=== PATIENT | female | born 1990 | race Caucasian/White ===

== ENCOUNTER 2020-07-01 17:10 | Emergency (ER) | payer MEDICAID ==
[~2020-07-01] VITALS: Ht 180.3 cm; Wt 60.2 kg
[2020-07-01 17:15] VITALS: BP 132/82
[2020-07-01] MEDS ORDERED: DEXAMETHASONE 4 MG/ML, 5ML ONE (18:35)
[2020-07-01] MEDS ORDERED: DEXAMETHASONE 4 MG/ML, 1ML PO ONE (19:00)
== END 2020-07-01 17:39 ==
LOC: ED 17:38
DX: J02.0 Streptococcal pharyngitis (principal); F17.210 Nicotine dependence, cigarettes, uncomplicated
CPT/HCPCS: 87880; 99283; 99406; J1100

== ENCOUNTER 2020-08-29 01:23 | Emergency (ER) | payer MEDICAID ==
[~2020-08-29] VITALS: Ht 180.3 cm; Wt 63.0 kg
[2020-08-29 03:28] VITALS: BP 126/74
== END 2020-08-29 03:30 | disposition home or self-care (01) ==
LOC: ED 03:00
DX: L03.116 Cellulitis of left lower limb (principal); R00.0 Tachycardia, unspecified; F17.200 Nicotine dependence, unspecified, uncomplicated
CPT/HCPCS: 99284

== ENCOUNTER 2020-08-30 12:43 | Emergency (ER) | payer MEDICAID ==
[~2020-08-30] VITALS: Ht 180.3 cm; Wt 62.8 kg
[2020-08-30] MEDS ORDERED: KETOROLAC 30 MG/1 ML IVPush ONE (14:00)
--- NOTE | 2020-08-30 14:04 | NUR ---
PT UPRIGHT ON GURNEY AWAKE & CALM, WATCHING TV, RESPONDS APPROP TO STAFF, NAD AT REST, NO NEEDS AT THIS TIME, CALL LIGHT WITHIN REACH.
[2020-08-30] MEDS ORDERED: KETOROLAC 30 MG/1 ML ONE (14:14)
--- NOTE | 2020-08-30 14:15 | NUR ---
PT TO XR
--- NOTE | 2020-08-30 14:28 | NUR ---
PT RETURNED FROM XR
[2020-08-30] MEDS ORDERED: KETOROLAC 30 MG/1 ML IM ONE (14:30)
[2020-08-30 14:33] VITALS: BP 124/79
--- NOTE | 2020-08-30 15:27 | NUR ---
Patient given sling/discharge instructions and Rx, they have confirmed that they understand the instructions. Patient ambulatory with steady gait.
== END 2020-08-30 15:30 | disposition home or self-care (01) ==
LOC: ED 15:25
DX: M75.31 Calcific tendinitis of right shoulder (principal); L03.115 Cellulitis of right lower limb; F17.200 Nicotine dependence, unspecified, uncomplicated
CPT/HCPCS: 73030; 96372; 99283; J1885

== ENCOUNTER 2020-09-05 16:20 | Emergency (ER) | payer MEDICAID ==
[~2020-09-05] VITALS: Ht 180.3 cm; Wt 63.6 kg
[2020-09-05 17:06] LABS: BASOPHILS % (AUTO) 0 % (0-1); EOSINOPHILS % (AUTO) 2 % (1-7); LYMPHOCYTES % (AUTO) 45 % (22-44); MEAN CORPUSCULAR HEMOGLOBIN 32.3 pg (27.0-34.8); MEAN CORPUSCULAR HGB CONC 34.2 g/dL (32.4-35.8); MONOCYTES % (AUTO) 9 % (2-9); NEUTROPHILS % (AUTO) 44 % (42-75); PLATELET COUNT 344 x10^3/uL (130-400); RED BLOOD COUNT 4.11 x10^6/uL (3.82-5.3)
[2020-09-05 17:08] LABS: MD NO
[2020-09-05 18:04] VITALS: BP 121/69
== END 2020-09-05 18:06 | disposition home or self-care (01) ==
LOC: ED 17:49
DX: L03.116 Cellulitis of left lower limb (principal); F17.210 Nicotine dependence, cigarettes, uncomplicated
CPT/HCPCS: 36415; 85025; 99283; 99406

== ENCOUNTER 2020-10-30 20:46 | Emergency (ER) | payer MEDICAID ==
[~2020-10-30] VITALS: Ht 180.3 cm; Wt 55.0 kg
[2020-10-30 20:52] VITALS: BP 120/84
[2020-10-30] MEDS ORDERED: OXYcodone/APAP 5/325MG TABLET ONE (22:26)
[2020-10-30] MEDS ORDERED: SULFAMETH./TRIMETHOPRIM DS 800MG/160MG TABLET ONE (22:26)
[2020-10-30] MEDS ORDERED: CEPHALEXIN 500 MG CAPSULE ONE (22:26)
[2020-10-30] MEDS ORDERED: CEPHALEXIN 500 MG CAPSULE PO ONE (22:30)
[2020-10-30] MEDS ORDERED: OXYcodone/APAP 5/325MG TABLET PO ONE (22:30)
[2020-10-30] MEDS ORDERED: SULFAMETH./TRIMETHOPRIM DS 800MG/160MG TABLET PO ONE (22:30)
--- NOTE | 2020-10-30 22:30 | NUR ---
Patient/Caregiver given discharge instructions and they have confirmed that they understand the instructions. Patient ambulatory with steady gait.
--- NOTE | 2020-10-30 22:30 | NUR ---
PT MEDICATED PER MAR
== END 2020-10-30 22:52 | disposition home or self-care (01) ==
LOC: ED 22:09
DX: L03.114 Cellulitis of left upper limb (principal); L03.116 Cellulitis of left lower limb; F17.210 Nicotine dependence, cigarettes, uncomplicated; R00.0 Tachycardia, unspecified
CPT/HCPCS: 99284; 99406

== ENCOUNTER 2020-12-05 18:13 | Emergency (ER) | payer MEDICAID ==
[~2020-12-05] VITALS: Ht 180.3 cm; Wt 63.3 kg
[2020-12-05 18:15] VITALS: BP 128/79
[2020-12-05] MEDS ORDERED: LIDOCAINE-MPF 1%, 2ML ONE (18:41)
[2020-12-05] MEDS ORDERED: CEFTRIAXONE 1,000 MG ONE (18:42)
[2020-12-05] MEDS ORDERED: CEFTRIAXONE 1,000 MG IM ONE (19:00)
== END 2020-12-05 19:58 | disposition home or self-care (01) ==
LOC: ED 18:32
DX: L03.113 Cellulitis of right upper limb (principal); F11.20 Opioid dependence, uncomplicated; F17.200 Nicotine dependence, unspecified, uncomplicated; Z88.9 Allergy status to unspecified drugs, medicaments and biological substances
CPT/HCPCS: 96372; 99283; J0696